=== PATIENT | male | born 1965 | race Two or more races ===

== ENCOUNTER 2024-06-01 13:41 | Emergency (ER) | payer OTHER ==
[~2024-06-01] VITALS: Ht 165.1 cm; Wt 92.5 kg
[2024-06-01] MEDS ORDERED: TAMSULOSIN HCL 0.4 MG CAP PO ONE ×2 (17:00→17:51)
[2024-06-01] MEDS ORDERED: KETOROLAC TROMETHAMINE 60 MG VIAL IM ONE ×2 (17:00→17:52)
[2024-06-01] MEDS ORDERED: CEFTRIAXONE SODIUM 1,000 MG VIAL IM ONE (17:00)
[2024-06-01] MEDS ORDERED: CEFTRIAXONE SODIUM 1,000 MG VIAL ONE (17:52)
[2024-06-01 18:44] LABS: HEMATOCRIT 44.4 % (39.0-48.0); HEMOGLOBIN 15.1 g/dL (13-16.00); MEAN CELL VOLUME 95.1 fL (80.0-100.00); MEAN CORPUSCULAR HEMOGLOBIN 32.4 pg (27.00-32.0); MEAN CORPUSCULAR HGB CONC 34.1 g/dl (32.0-36.0); PLATELET COUNT 257 K/uL (150-450); RED BLOOD COUNT 4.67 M/uL (4.00-6.00); RED CELL DISTRIBUTION WIDTH 14.1 % (11.5-14.5)
[2024-06-01 19:13] LABS: ALBUMIN 4.3 gm/dL (3.4-5.0); BILIRUBIN TOTAL 0.67 mg/dL (0.3-1.2); CALCIUM 9.6 mg/dL (8.5-10.1); CREATININE SERUM 1.12 mg/dL (0.70-1.30); GFR 67.34; POTASSIUM 3.81 mEq/L (3.5-5.1); TOTAL PROTEIN 8.3 gm/dL (6.4-8.2)
== END 2024-06-01 21:29 | disposition home or self-care (01) ==
LOC: ER 13:43
PROVIDERS: General Practice
DX: M54.9 Dorsalgia, unspecified (principal)